=== PATIENT | female | born 1950 | race Caucasian/White ===

== ENCOUNTER 2016-09-18 09:12 | Outpatient (CLI) | payer OTHER, BC | END 2016-09-18 18:08 | disposition home or self-care (01) | LOC: SMA 09:12 | PROVIDERS: ATTEND General Practice | DX: Z12.31 Encounter for screening mammogram for malignant neoplasm of breast (principal) | CPT/HCPCS: 77067; G0202 ==

== ENCOUNTER 2017-09-28 10:13 | Outpatient (CLI) | payer OTHER, BC | END 2017-09-28 19:25 | disposition home or self-care (01) | LOC: SMA 10:13 | PROVIDERS: ATTEND General Practice | DX: Z12.31 Encounter for screening mammogram for malignant neoplasm of breast (principal) | CPT/HCPCS: 77067 ==

== ENCOUNTER 2018-10-31 09:20 | Outpatient (CLI) | payer OTHER, BC | END 2018-10-31 21:23 | disposition home or self-care (01) | LOC: SMA 09:20 | PROVIDERS: ATTEND General Practice | DX: Z12.31 Encounter for screening mammogram for malignant neoplasm of breast (principal) | CPT/HCPCS: 77067 ==

== ENCOUNTER 2020-01-03 09:43 | Outpatient (CLI) | payer OTHER, BC | END 2020-01-03 22:16 | disposition home or self-care (01) | LOC: SMA 09:43 | PROVIDERS: ATTEND General Practice | DX: Z12.31 Encounter for screening mammogram for malignant neoplasm of breast (principal) | CPT/HCPCS: 77067 ==

== ENCOUNTER 2021-04-17 08:38 | Outpatient (CLI) | payer OTHER, BC | END 2021-04-18 17:28 | disposition home or self-care (01) | LOC: SMA 08:38 | PROVIDERS: ATTEND General Practice | DX: Z12.31 Encounter for screening mammogram for malignant neoplasm of breast (principal) | CPT/HCPCS: 77067 ==

== ENCOUNTER 2022-04-23 09:20 | Outpatient (CLI) | payer OTHER | END 2022-04-23 21:31 | disposition home or self-care (01) | LOC: SMA 09:20 | PROVIDERS: ATTEND Family Medicine | DX: Z12.31 Encounter for screening mammogram for malignant neoplasm of breast (principal) | CPT/HCPCS: 77067 ==

== ENCOUNTER 2023-06-10 09:50 | Outpatient (CLI) | payer OTHER | END 2023-06-10 19:24 | disposition home or self-care (01) | LOC: SMA 09:50 | PROVIDERS: ATTEND General Practice | DX: Z12.31 Encounter for screening mammogram for malignant neoplasm of breast (principal) | CPT/HCPCS: 77067 ==